=== PATIENT | male | born 1960 | race African-American/Black ===

== ENCOUNTER 2022-07-20 09:29 | Emergency (ER) | payer OTHER ==
[~2022-07-20] VITALS: Ht 165.1 cm; Wt 80.0 kg
[2022-07-20 09:35] VITALS: BP 157/104
== END 2022-07-20 12:13 | disposition home or self-care (01) ==
LOC: ER 09:29
DX: K40.90 Unilateral inguinal hernia, without obstruction or gangrene, not specified as recurrent (principal); M25.512 Pain in left shoulder; I10 Essential (primary) hypertension; Z88.6 Allergy status to analgesic agent; Z91.81 History of falling
CPT/HCPCS: 99281